=== PATIENT | female | born 1990 | race Two or more races ===

== ENCOUNTER 2017-01-31 16:47 | Emergency (ER) | payer MEDICAID ==
[~2017-01-31] VITALS: Ht 170.2 cm; Wt 95.3 kg
[2017-01-31 16:53] VITALS: BP 147/76
[2017-01-31] MEDS ORDERED: cefTRIAXone SOD 1,000 MG VL IM ONE (17:45)
[2017-01-31] MEDS ORDERED: methylPREDNISolone SOD SUCC 125 MG/2 ML VL IM ONE (17:45)
== END 2017-01-31 18:27 | disposition home or self-care (01) ==
LOC: ER 16:53
DX: J03.90 Acute tonsillitis, unspecified (principal); E66.9 Obesity, unspecified; Z68.32 Body mass index [BMI] 32.0-32.9, adult
CPT/HCPCS: 96372; 99284; J0696; J2930